=== PATIENT | male | born 1965 | race African-American/Black ===

== ENCOUNTER 2024-09-21 04:06 | Emergency (ER) | payer MEDICAID ==
[~2024-09-21] VITALS: Ht 172.7 cm; Wt 91.6 kg
[2024-09-21] MEDS ORDERED: hydrALAZINE HCL 20 MG/1 ML VIAL ONE (05:18)
[2024-09-21 05:23] LABS: BASOPHILS # (AUTO) 0.1 K/UL (0.0-0.2); BASOPHILS % (AUTO) 1.2 % (0.0-2.0); EOSINOPHILS # (AUTO) 0.3 K/uL (0.0-0.7); EOSINOPHILS % (AUTO) 7.6 % (0.0-7.0); HEMATOCRIT 47.5 % (36.7-47.1); HEMOGLOBIN 15.8 g/dL (12.5-16.3); LYMPHOCYTES # (AUTO) 1.6 K/uL (0.8-4.8); LYMPHOCYTES % (AUTO) 36.8 % (20.5-51.5); MEAN CORPUSCULAR HEMOGLOBIN 29.2 uug (23.8-33.4); MEAN CORPUSCULAR HGB CONC 33 g/dL (32.5-36.3); MEAN CORPUSCULAR VOLUME 87.6 fL (73.0-96.2); MONOCYTES # (AUTO) 0.4 K/uL (0.1-1.30); MONOCYTES % (AUTO) 8.6 % (0.0-11.0); NEUTROPHILS % (AUTO) 45.8 % (38.5-71.5); PLATELET COUNT (AUTO) 234 K/uL (152-348); RED BLOOD CELL COUNT(AUTO) 5.42 MIL/uL (4.06-5.63); RED CELL DISTRIBUTION WIDTH 13.6 % (12.1-16.2); WHITE BLOOD COUNT (AUTO) 4.3 K/uL (3.6-10.2)
[2024-09-21] MEDS: hydrALAZINE HCL 20 MG/1 ML VIAL IV ONE (05:23)
[2024-09-21 06:07] LABS: ALBUMIN 4.1 g/dL (3.4-5.0); BILIRUBIN,TOTAL 2.1 mg/dL (0.2-1.0); CALCIUM 9.4 mg/dL (8.5-10.1); CREATININE 1.1 mg/dL (0.6-1.3); POTASSIUM 3.6 mmol/L (3.5-5.1); TOTAL PROTEIN, SERUM 7.6 g/dL (6.4-8.2)
[2024-09-21] MEDS ORDERED: IOHEXOL 350 100 ML INFUS..BTL ONE (06:28)
[2024-09-21] MEDS ORDERED: IV NORMAL SALINE 250 ML IV ONE (06:28)
[2024-09-21] MEDS ORDERED: SWABABLE VALVE TRANSFER SET EA MC ONE (06:28)
[2024-09-21 07:48] LABS: *BILIRUBIN,URIN NEGATIVE (NEGATIVE); *BLOOD, URINE NEGATIVE (NEGATIVE); *CLARITY,URINE CLEAR (CLEAR); *COLOR,URINE YELLOW (YELLOW); *KETONES,URINE NEGATIVE (NEGATIVE); *PROTEIN,URINE NEGATIVE (NEGATIVE); *UROBILINOGEN,URINE 0.2 E.U./dl (NORMAL); LEUKOCYTE ESTERASE ,URINE NEGATIVE (NEGATIVE); NITRITE, URINE NEGATIVE (NEGATIVE); UGLUCOSE NEGATIVE (NEGATIVE)
[2024-09-21] MEDS: MAGNESIUM HYDROXIDE 30 ML LIQUID UDC PO ONE (08:24)
[2024-09-21 08:27] VITALS: BP 155/86; TEMP 97.5; O2SAT 96
== END 2024-09-21 08:28 | disposition home or self-care (01) ==
LOC: ER 04:06
DX: R10.9 Unspecified abdominal pain (principal); I10 Essential (primary) hypertension; F17.200 Nicotine dependence, unspecified, uncomplicated; E66.9 Obesity, unspecified; R06.00 Dyspnea, unspecified; Z96.651 Presence of right artificial knee joint; Z68.30 Body mass index [BMI] 30.0-30.9, adult; Z88.7 Allergy status to serum and vaccine
CPT/HCPCS: 36415; 84484; 85025; 85730; 93005; A4606; A4663; J0360; Q9967